=== PATIENT | male | born 1995 | race Caucasian/White ===

== ENCOUNTER 2021-12-29 11:35 | Emergency (ER) | payer SELFPAY ==
[~2021-12-29] VITALS: Ht 177.8 cm; Wt 105.5 kg
[~2021-12-29 11:35] MED LIST: AMOXICILLIN 8751 TAB PO; MOTRIN 600600 MG/TAB PO
[2021-12-29 11:46] VITALS: TEMP 99.3
[2021-12-29] MEDS ORDERED: CEPHALEXIN500 M1 PO (13:32)
[2021-12-29 13:38] VITALS: BP 140/82; PULSE 100
== END 2021-12-29 13:55 | disposition home or self-care (01) ==
LOC: COL.ER 11:35
DX: S91.311A Laceration without foreign body, right foot, initial encounter (principal); Z28.310 Unvaccinated for COVID-19; Z23 Encounter for immunization; W26.8XXA Contact with other sharp object(s), not elsewhere classified, initial encounter